=== PATIENT | female | born 1975 | race Hispanic/Latino ===

== ENCOUNTER → 2017-11-24 | Day surgery (SDC) | payer OTHER ==
[2017-11-20 12:37] LABS: BASOPHILS % 0.3 % (0.0-1.0); EOSINOPHILS # (AUTO) 0.2 (0.0-0.4); EOSINOPHILS % 2.3 % (0.0-6.0); HEMATOCRIT 36.9 % (34.2-44.1); HEMOGLOBIN 11.6 g/dL (12.0-16.0); LYMPHOCYTES # (AUTO) 2.7 (1.0-3.2); LYMPHOCYTES % 30.1 % (18.0-39.1); MEAN CORPUSCULAR HEMOGLOBIN 27.4 pg (28-32); MEAN CORPUSCULAR HGB CONC 31.4 g/dL (31-35); MONOCYTES # (AUTO) 0.6 (0.2-0.8); MONOCYTES % 6.3 % (4.4-11.3); NEUTROPHILS # (AUTO) 5.5 (2.1-6.9); NEUTROPHILS % 60.8 % (38.7-80.0); PLATELET COUNT 271 x10e3/uL (140-360); RED BLOOD COUNT 4.24 x10e6/uL (3.6-5.1); RED CELL DISTRIBUTION WIDTH 15.6 % (11.7-14.4)
[2017-11-20 12:49] LABS: INR 1.07; PROTHROMBIN TIME 13.1 seconds (11.9-14.5)
[2017-11-20 12:50] LABS: PARTIAL THROMBOPLASTIN TIME 31.9 seconds (23.8-35.5)
[2017-11-20 12:57] LABS: ALANINE AMINOTRANSFERASE 8 IU/L (0-55); ALBUMIN 3.3 g/dL (3.5-5.0); ALBUMIN/GLOBULIN RATIO 0.7 (0.8-2.0); ALKALINE PHOSPHATASE 57 IU/L (40-150); ANION GAP 11.1 mmol/L (8-16); BLOOD UREA NITROGEN 10 mg/dL (7-26); BUN/CREATININE RATIO 15 (6-25); CALCIUM 8.8 mg/dL (8.4-10.2); CARBON DIOXIDE 24 mmol/L (22-29); CHLORIDE 106 mmol/L (98-107); CREATININE, SERUM 0.66 mg/dL (0.57-1.11); EST GLOMERULAR FILTRATION RATE > 60 ML/MIN (60-); GLUCOSE 101 mg/dL (74-118); POTASSIUM 4.1 mmol/L (3.5-5.1); SODIUM 137 mmol/L (136-145)
[2017-11-20 13:03] LABS: HCG,QUANTITATIVE < 1.20 mIU/mL (0-10)
--- NOTE | 2017-11-20 14:47 | Diagnostic Imaging Report ---
PROCEDURE: X-RAY CHEST, TWO VIEWS COMPARISON: None. INDICATIONS: PREOPERATIVE CHEST XRAY FOR LEFT HEART CATH FINDINGS: LUNGS: No mass, consolidations, or edema. The pulmonary vasculature is normal. PLEURA: No effusions or pneumothorax. HEART \T\ MEDIASTINUM: The heart is within normal size-limits. BONES \T\ SOFT TISSUES: No acute findings. Clips in the upper abdomen are suggestive of cholecystectomy. CONCLUSION: No acute thoracic abnormality. Dictated by: Yolande Guzman M.D. on 11/20/2017 at 14:51 Electronically approved by: Yolande Guzman M.D. on 11/20/2017 at 14:51
[~2017-11-24] VITALS: Ht 170.2 cm; Wt 127.0 kg
[2017-11-24] VITALS (12 sets, daily range): BP systolic 119–152; BP diastolic 69–96
[~2017-11-24] MED LIST: BAYER BACK & B1 EACH PO; FENTANYL CITRATE/PF 100MCG/2 ML INJ ONE; HEPARIN SOD/SOD CHLORIDE 2,000 ML ONE; IOPAMIDOL 370 MG/ML 200 ML INFUS..BTL INJ ONE; LIDOCAINE HCL 2% LOCAL 20 ML VIAL ONE; MIDAZOLAM HCL 2 MG/2 ML VIAL ONE; SODIUM CHLORIDE 0.9% 1000ML 1,000 ML ONE
--- NOTE | 2017-11-24 10:20 | Operative Report ---
DATE OF PROCEDURE: November 24, 2017 PROCEDURES PERFORMED 1. Left heart catheterization. 2. Selective coronary angiogram. 3. Left ventriculogram. 4. Vas-K closure device. INDICATIONS: Chest pain and abnormal stress test. BLOOD LOSS: 2 mL. ANESTHESIA: Two percent lidocaine for local anesthesia, Versed and fentanyl for conscious sedation. DESCRIPTION OF PROCEDURE: Patient was referred by Dr. Linn for chest pain and abnormal stress test for cardiac catheterization. Patient was brought to the cardiac catheterization laboratory and placed on the table. Both groins were painted and draped in a sterile fashion. Lidocaine injected in the right groin for local anesthesia. Right femoral artery was accessed by Seldinger technique, and a 5-Kazakh sheath was placed in the right femoral artery. Left main artery was cannulated using a JL4, 5-Kazakh catheter. Coronary angiogram was performed and images obtained in multiple views. The right artery was cannulated using a 3DRC 5-Kazakh catheter. Coronary angiogram was performed and images obtained in multiple views. LV-gram was performed using a pigtail catheter. Patient tolerated the procedure without any complications. After the cardiac catheterization, the arteriotomy site was closed using Vas-K closure device. REPORT LEFT MAIN: Normal caliber and no significant stenosis. LEFT ANTERIOR DESCENDING: Normal caliber. There is no significant stenosis. LEFT CIRCUMFLEX: Normal caliber. Dominant vessel. No significant stenosis. RIGHT CORONARY ARTERY: Normal caliber. Nondominant vessel and no significant stenosis. HEMODYNAMICS: Aortic pressure is 150/62. LV pressure 152/9. LVEDP 16. LV-gram shows normal LV function. Ejection fraction 60%. PLAN: Medical management. Job#: [id number] MOLLY
== END | disposition home or self-care (01) ==
LOC: CATH LAB 07:24
DX: R07.2 Precordial pain (principal); R94.39 Abnormal result of other cardiovascular function study; R00.2 Palpitations; R01.1 Cardiac murmur, unspecified; E66.01 Morbid (severe) obesity due to excess calories; I10 Essential (primary) hypertension; M05.40 Rheumatoid myopathy with rheumatoid arthritis of unspecified site; Z01.810 Encounter for preprocedural cardiovascular examination; Z01.812 Encounter for preprocedural laboratory examination; Z01.818 Encounter for other preprocedural examination; Z79.82 Long term (current) use of aspirin; Z68.42 Body mass index [BMI] 45.0-49.9, adult; Z82.49 Family history of ischemic heart disease and other diseases of the circulatory system
CPT/HCPCS: 36415; 71046; 80053; 84702; 85025; 85610; 85730; 93005; 93458; C1760; J2001; J2250; J7030; Q9967